=== PATIENT | female | born 1985 | race Caucasian/White ===

== ENCOUNTER 2018-10-01 15:14 | Emergency (ER) | payer OTHER ==
[2018-10-01] MEDS ORDERED: NS 0.9% 1000 ML** 1,000 ML IV ONE (18:59)
[2018-10-01 19:46] LABS: ABS Basophils 0 10^3/ul (0-0.2); ABS Eosinophils 0 10^3/ul (0-0.6); ABS Lymphocytes 1.8 10^3/ul (1.0-4.8); ABS Monocytes 0.5 10^3/ul (0-0.8); ABS Neutrophils 5.9 10^3/ul (1.5-7.7); ABS Nucleated RBC 0 10^3/ul; Eosinophil % 0.3 %; Hematocrit 36 % (33-41); Hemoglobin 11.8 g/dL (12.0-16.0); Lymphocyte % 22.2 %; Mean Corpuscular HGB Conc 33 g/dL (31-36); Mean Corpuscular Hemoglobin 29 pg (27-31); Mean Corpuscular Volume 88 fL (80-97); Mean Platelet Volume 8.3 fL (7.4-10.4); Nucleated Red Blood Cells % 0.1; Platelet Count 205 10^3/uL (150-450); Red Blood Count 4.07 10^6 /uL (3.70-4.87); Red Cell Distribution Width 13 % (10.5-15); White Blood Count 8.2 10^3/uL (3.5-10.8)
[2018-10-01 20:02] LABS: Anion Gap 5 mmol/L (2-11); BUN/Creatinine Ratio 12.3 (8-20); Blood Urea Nitrogen 10 mg/dL (6-24); CO2 Carbon Dioxide 27 mmol/L (22-32); Calcium 9.2 mg/dL (8.6-10.3); Chloride 104 mmol/L (101-111); EGFR African American 100.5 (>60); Glucose 90 mg/dL (70-100); Potassium 4.3 mmol/L (3.5-5.0); Sodium 136 mmol/L (135-145)
[2018-10-01 20:09] LABS: HCG Pregnancy < 0.60 mIU/mL
--- NOTE | 2018-10-01 21:13 | UC ---
Complaint Female HPI - HPI Summary HPI Summary: 32-year-old female presents with sudden onset of left flank pain this afternoon while at work. Describes as an "sharp" pain that waxes and wanes in intensity. Pain began to radiate into the left lower quadrant throughout the day. Associated with nausea when the pain was at its most intense. No alleviating or aggravating factors. States pain has greatly improved over the past hour. Denies fever, chills, dysuria, frequency, urgency, or hematuria. - History Of Current Complaint Chief Complaint: EDFlankPain Stated Complaint: BACK PAIN PER PT Time Seen by Provider: 10/01/18 18:49 Hx Obtained From: Patient Pain Intensity: 4 - Allergies/Home Medications Allergies/Adverse Reactions: Allergies Allergy/AdvReac Type Severity Reaction Status Date / Time lactose Allergy GI Upset Verified 10/01/18 15:31 wheat Allergy GI Upset Verified 10/01/18 15:31 PMH/Surg Hx/FS Hx/Imm Hx Previously Healthy: Yes - Denies significant PMH - Surgical History Surgical History: None - Family History Known Family History: Positive: Non-Contributory - Social History Occupation: Employed Full-time Lives: With Family Review of Systems All Other Systems Reviewed And Are Negative: Yes Constitutional: Negative: Fever, Chills Skin: Negative: Rash Respiratory: Positive: Negative Cardiovascular: Positive: Negative Gastrointestinal: Positive: Abdominal Pain, Nausea. Negative: Vomiting, Diarrhea Genitourinary: Negative: Dysuria, Hematuria, Frequency, Urgency, Vaginal/Penile Discharge, Abnormal Bleeding Musculoskeletal: Positive: Negative Is Patient Immunocompromised?: Yes Physical Exam - Summary Physical Exam Summary: GENERAL APPEARANCE: Well developed, well nourished, alert and cooperative, and appears to be in no acute distress. CARDIAC: Normal S1 and S2. No S3, S4 or murmurs. Rhythm is regular. There is no peripheral edema, cyanosis or pallor. Extremities are warm and well perfused. Capillary refill is less than 2 seconds. Peripheral pulses intact. LUNGS: Clear to auscultation without rales, rhonchi, wheezing or diminished breath sounds. ABDOMEN: Positive bowel sounds. Soft, nondistended. Mild LLQ tenderness. No guarding or rebound. No masses or hepatosplenomegally. Mild let CVA tenderness. MUSKULOSKELETAL: ROM intact to all extremities. No joint erythema or tenderness. Normal muscular development. Normal gait. BACK: Examination of the spine reveals normal gait and posture, no spinal deformity or tenderness, decreased range of motion or muscular spasm. SKIN: Skin normal color, texture and turgor with no lesions or eruptions. Triage Information Reviewed: Yes Vital Signs: Initial Vital Signs Temp 97.7 F 10/01/18 15:26 Pulse 84 10/01/18 15:26 Resp 20 10/01/18 15:26 BP 123/74 10/01/18 15:26 Pulse Ox 100 10/01/18 15:26 Vital Signs Reviewed: Yes Diagnostics - Radiology No standard instances Radiology Interpretation Completed By: Radiologist Summary of Radiographic Findings: EXAM: CT Abdomen and Pelvis Without Contrast. EXAM DATE/TIME: 10/01/2018 8:39 PM. CLINICAL HISTORY: 32 years old , female; Pain; Abdominal pain; Flank; Left; Additional info: R/O. kidney stone. TECHNIQUE: Imaging protocol: Axial computed tomography images of the abdomen and pelvis. without contrast. Coronal and sagittal reformatted images were created and reviewed. Radiation optimization: All CT scans at this facility use at least one of. these dose optimization techniques: automated exposure control; mA and/or kV. adjustment per patient size (includes targeted exams where dose is matched to. clinical indication); or iterative reconstruction. COMPARISON: No relevant prior studies available. FINDINGS: Lower thorax: No acute findings. ABDOMEN: Liver: Normal. No mass. Gallbladder and bile ducts: Normal. No calcified stones. No ductal dilation. Pancreas: Normal. No ductal dilation. Spleen: Normal. No splenomegaly. Adrenals: Normal. No mass. Kidneys and ureters: No renal calculi or pelvocaliectasis. Stomach and bowel: Incompletely distended grossly normal stomach. Normal. caliber small bowel. No colonic masses or segmental wall thickening. Appendix: Normal caliber appendix without wall thickening or adjacent. inflammation. PELVIS: Bladder: The bladder is decompressed but otherwise normal. Reproductive: Uterus and ovaries are normal. ABDOMEN and PELVIS: Intraperitoneal space: Normal. No free air. No significant fluid collection. Bones/joints: No fractures. No suspicious bone lesions. Soft tissues: Normal. No hernia. Vasculature: Normal caliber aorta with no evidence of dissection or rupture. Lymph nodes: Normal. No enlarged lymph nodes. IMPRESSION: No CT findings to correlate with patient's symptomatology. Specifically no. obstructing renal or ureteral calculi. Complaint Female Dx - Course Course Of Treatment: 32-year-old female presents with sudden onset of left flank pain this afternoon while at work. Describes as an "sharp" pain that waxes and wanes in intensity. Pain began to radiate into the left lower quadrant throughout the day. Associated with nausea when the pain was at its most intense. No alleviating or aggravating factors. States pain has greatly improved over the past hour. Denies fever, chills, dysuria, frequency, urgency, or hematuria. Afebrile. Vital signs stable. Exam was remarkable for mild left CVA tenderness and mild left lower quadrant tenderness without rebound or guarding. Patient received 1 L normal saline, CBC and BMP were within normal limits. Noncontrasted CT of the abdomen and pelvis was performed. No evidence of a renal stone or other acute pathology was noted. A UA was collected by nursing after CT which showed trace ketones, 1+ blood, 1+ leukocyte esterase, 4-20 WBC, 3-5 RBC, 1+ baceria, with sqaumous cells present. Urine culture is pending. Patient states that she continues to have some mild left flank and lower abdomen pain but much improved from previous. Based on her symptoms she may have passed a very small stone versus possible UTI. Will treat with Bactrim DS 1 tab BID x 7 days. She is to follow up with her PCP in 5-7 days if symptoms persist. Anticipatory guidance and warning symptoms were reviewed with the patient. Verbalizes understanding and agrees with POC. - Differential Dx/Diagnosis Differential Diagnosis/HQI/PQRI: Ectopic, Ovarian Cyst, Renal Colic, Ureteral Stone, Urinary Tract Infection Provider Diagnosis: Flank pain, acute, UTI (urinary tract infection) Discharge - Sign-Out/Discharge Documenting (check all that apply): Patient Departure Patient Received Moderate/Deep Sedation with Procedure: No - Discharge Plan Condition: Stable Disposition: HOME Prescriptions: Sulfamethox/Trimethoprim DS* [Bactrim DS 800/160 TAB*] 1 tab PO BID #14 tab Patient Education Materials: Kidney Stones (ED), Urinary Tract Infection in Women (DC) Referrals: No Primary Care Phys,NOPCP [Primary Care Provider] - Additional Instructions: The CT scan performed in the emergency room tonight was normal, labs were normal , and the urine test did show the possibility of a urinary tract infection. Although the CT scan was normal your symptoms were consistent with a kidney stone and this could still be the case if it was a small stone. Based on a urine test results though we will treat you for a urinary tract infection. Start Bactrim DS 1 tab twice a day for 7 days. We gave you the first dose in the emergency room. Drink plenty of fluids. To help prevent urinary tract infections: 1) Be sure to wipe from front to back. 2) Urinate immediately after any sexual intercourse. 3) Avoid taking bubble baths. Follow up with your primary care provider in 5-7 days if symptoms persist. Seek immediate medical attention in the emergency room if you develop fever greater than 100.5 F, have severe abdominal pain, persistent vomiting, or any worsening of symptoms. - Billing Disposition and Condition Condition: STABLE Disposition: Home
[2018-10-01 21:31] LABS: Urine Appearance Cloudy; Urine Bacteria 1+ (Absent); Urine Bilirubin Negative (Negative); Urine Blood 1+ (Negative); Urine Color Yellow; Urine Glucose Negative (Negative); Urine Ketones Trace (Negative); Urine Nitrite Negative (Negative); Urine Protein Negative (Negative); Urine Red Blood Cell 1+(3-5/hpf) (Absent); Urine Specific Gravity 1.013 (1.010-1.030); Urine Squamous Epithelial Cell Present (Absent); Urine Urobilinogen Negative (Negative); Urine White Blood Cell 2+(11-20/hpf) (Absent)
[2018-10-01] MEDS ORDERED: Sulfamethox/Trimethoprim DS 800/160* TAB PO ONE (21:33)
[2018-10-01 22:03] VITALS: BP 119/65
--- NOTE | 2018-10-04 09:06 | PN ---
Progress Note - Progress Note Date of Service: 10/01/18 Note: Urine culture final grew ESBL Escherichia coli 100,000 Results were called into myself, Kristin Mckeon, at 9:05 AM on 10/04/18 Patient was placed on Bactrim prior to discharge on 10/01/18 This is sensitive to organism Nothing further needed at this time
== END 2018-10-01 22:00 | disposition home or self-care (01) ==
LOC: ED 15:14
DX: N39.0 Urinary tract infection, site not specified (principal); B96.20 Unspecified Escherichia coli [E. coli] as the cause of diseases classified elsewhere; M54.5 Low back pain; R10.32 Left lower quadrant pain; R11.0 Nausea
CPT/HCPCS: 36415; 74176; 80048; 81003; 81015; 84702; 85025; 87077; 87086; 87186; 96360; 99282; A9270-GY

== ENCOUNTER 2018-11-05 16:29 | Emergency (ER) | payer OTHER ==
--- OUTSIDE RECORDS SUMMARY | 2018-11-05 17:03 | XMS REPORT | Continuity of Care Document ---
:1985 Author Organization [facility] Address [address], [place] [id number] Phone Care Team Providers Name Role Phone Sarah Iyer NP Unavailable Unavailable Allergies, Adverse Reactions, Alerts Substance Reaction Status No Known Allergies Active Medications Medication Instructions Dosage Effective Dates Status Comments (start - stop) EContra EZ 1.5 mg 1 tab po within 72 - Active tablet hours unprotected IC Problems Condition Effective Dates (start - Clinical Status Comments stop) Human immunodeficiency virus [HIV] - counseling Encounter for screening for human - immunodeficiency virus Encounter for prescription of emergency contraception Encounter for oth general cnsl and advice on contraception Encounter for oth screening for malignant neoplasm of breast Encounter for screening for malignant neoplasm of cervix Encntr for artificial stone applicator exam (general) (routine) w/o abn findings Encntr screen for infections w sexl mode of transmiss Encounter for oth general cnsl and - advice on contraception Human immunodeficiency virus [HIV] - counseling Encntr screen for infections w sexl mode of transmiss Candidiasis of vulva and vagina Encounter for screening for human - immunodeficiency virus Human immunodeficiency virus [HIV] - counseling Encounter for oth general cnsl and - advice on contraception Encntr screen for infections w sexl mode of transmiss Encounter for screening for human - immunodeficiency virus Procedures Procedure Date PREVENTIVE COUNSELING, 8-14 Minutes HIV-1/HIV-2, SINGLE ASSAY URINALYSIS, DIP NONAUTO W/O SCOPE PREV VISIT, EST, AGE 18-39 BLOOD PRESSURE Height/Weight Abdominal Palp. BREAST EXAM Emergency Contraception OTHER Medical Services Contraceptive Perinatal Director.Svc. Other Perinatal Director.Svc. STI E-Contra EZ Emergency Contraceptive CHYLMD DNA, AMP PROBE N.GONORRHOEAE, DNA, AMP PROB SUREPATH HPV, DNA, AMP PROBE HIGH RISK Results Test Name Date and Time Measure Units Reference Range Abnormal Flag Status Comments Panel Description: Urine Dipstick Final Urine Dipstick 14:33:32 Color: yellowGlucose: Final negativeKetones: negativeBilirubin: negativeProtein: negativeNitrite: negativeLeukocytes: negativeBlood: negativepH: 7.5 NOTE: This patient has pending results not included in this document. Advance Directives Directive Yes / No Effective Date File Name No information Encounters Encounter Practice Location Reason(s) Diagnoses Date Provider Providers Description For Visit Copied on Encounter PREVENTIVE [facility] Referring COUNSELING, [facility] [place] Person immunodeficiency 3-201 Sarah. Provider: 8-14 Minutes Southern Visit virus [HIV] 9 [address] (chief [facility], [address] complaint) for screening for St, [address] [place] human [place], [address], [place], [place], [place], [place], [place], [place] [id number]. [place], [address]. [id number], prescription of tel:[phone] tel:[phone] [place] emergency [phone] tel:[phone] for oth general cnsl and advice on contraceptionEncoun ter for oth screening for malignant neoplasm of breastEncounter for screening for malignant neoplasm of cervixEncntr for artificial stone applicator exam (general) (routine) w/o abn findingsEncntr screen for infections w sexl mode of transmissEncounter for oth general cnsl and advice on contraception [facility] [place] immunodeficiency 6 Sarah. Southern virus [HIV] 8 [address] counseling[address] [place], [address] [place] infections w sexl [place], St, [place], [place], [place] [id number]. [id number], s of vulva and tel:[phone] [place] vaginaEncounter for [id number] tel:[phone] screening for human [id number] immunodeficiency virus [facility] [place] immunodeficiency 1-201 Chiara. Southern virus [HIV] 7 [address] counselingEnc[address] [place], [address] [place] cnsl and advice on [place], [place], [place], [place]ntr [place] [address], [id number], infections w sexl [place]. [place] mode of tel:[phone] transmissEncounter [id number] for screening for human immunodeficiency virus Family History Family Member Diagnosis Age At Onset Father Coronary heart disease before age 55 45 1st degree relative No hx of venous thromboembolism 1st degree relative No hx of cancer of breast, colon, endometrium or ovary Immunizations Vaccine Date Status Comments No information Payers Payer name Insurance type Covered green party ID Authorization(s) Jovany DONALDSON [facility] CI [id number] Social History Type Description Quantity Date Captured Comments Alcohol Use Details Unknown Caffeine Use Details Unknown Tobacco Use Status Current non-smoker Smoking Status Never smoker Non-Smoking Tobacco : No Details Available : No Details Available 2018 Use Details Sex Female Vital Signs Date / Height Weight BMI Pulse Blood Temperature Respiratory Body Head BMI Pulse Inhaled Time: Rate Pressure Rate Surface Circumference percentile Ox Ox Area 62.00 157.00 28.7 in lbs 2 mm[Hg] 1:36 kg/m PM eter (2) Chief Complaint And Reason For Visit Most recent encounter only, dated '10/13/2018 13:00'. Well Person Visit ( chief complaint) Reason For Referral Reason For Referral No information Plan Of Treatment Date Type Action Status No information History Of Present Illness Encounter Date Complaint History Of Present Illness No information Functional Status Date Functional Assessment No information Medications Administered Medication Instructions Dosage Effective Dates (start - stop) Status Comments No information Instructions Date Instruction Additional Information No information Assessments Type Assessment Date assessment Human immunodeficiency virus [HIV] counseling assessment Encounter for screening for human immunodeficiency virus 2018 assessment Encounter for prescription of emergency contraception assessment Encounter for oth general cnsl and advice on contraception 2018 assessment Encounter for oth screening for malignant neoplasm of breast assessment Encounter for screening for malignant neoplasm of cervix 2018 assessment Encntr for artificial stone applicator exam (general) (routine) w/o abn findings 2018 assessment Encntr screen for infections w sexl mode of transmiss assessment Encounter for oth general cnsl and advice on contraception 2018 Goals Health Concern Goal Type Priority Status Date No information Medical Equipment Description Device [place] Device Identifier Effective Dates (start - stop ) Status No information Mental Status Date Cognitive Assessment Normal Orientation Health Concerns Observation Date No information Concern Status Date No information
--- OUTSIDE RECORDS SUMMARY | 2018-11-05 17:03 | XMS REPORT | Continuity of Care Document ---
:1985 Author Organization [facility] Address [address], [place] [id number] Phone Care Team Providers Name Role Phone [...] for malignant neoplasm of cervix Encntr for manager culture exam (general) (routine) w/o abn findings Encntr [...] human - immunodeficiency virus Procedures Procedure Date No information Results Test Name Date and Time Measure Units Reference Range Abnormal Flag Status Comments No information Advance Directives Directive Yes / No Effective Date File Name No information Encounters Encounter Practice Location Reason(s) Diagnoses Date Provider Providers Description For Visit Copied on Encounter [facility] [place] . [place] 9 [address] [place], [address] [place], St, [place], [address]. [id number], tel:[phone] [place] [phone] tel:[phone] [facility] Apr[facility]0 [facility] [place] immunodeficiency 3. Provider: [place] virus [HIV] 9 [address] counselingEncounter [place], [address], [address] [place] human [place], [address], [place], [place], [place] [address]. [place], [address]. [id number], prescription of tel:[phone] tel:[phone] [place] emergency [phone] tel:[phone] for oth general cnsl and advice on contraceptionEncoun ter for oth screening for malignant neoplasm of breastEncounter for screening for malignant neoplasm of cervixEncntr for manager culture exam (general) (routine) w/o abn findingsEncntr screen for infections w sexl mode of transmissEncounter for oth general cnsl and advice on contraception [facility] [place] immunodeficiency . [place] virus [HIV] 8 [address] counselingEncntr [place], [address], [address] [place] infections w sexl [place], [place], [place], [place] [address]. [id number], s of vulva and tel:[phone] [place] vaginaEncounter for [id number] tel:[phone] screening for human [id number] immunodeficiency virus [facility] [place] immunodeficiency Chiara. Southern virus [HIV] 7 [address] counselingEncounter [place], [address], [address] [place] cnsl and advice on [place], [place], [place], [place]Encntr [place] [address], [id number], infections w sexl [place]. [place] mode of tel:[phone] transmissEncounter [id number] for screening for human immunodeficiency virus Family History Family Member Diagnosis Age At Onset Father Coronary heart disease before age 55 45 1st degree relative No hx of venous thromboembolism 1st degree relative No hx of cancer of breast, colon, endometrium or ovary Immunizations Vaccine Date Status Comments No information Payers Payer name Insurance type Covered libertarian ID [facility]) [facility] [id number] Social History Type Description Quantity Date Captured Comments Alcohol Use Details Unknown Caffeine Use Details Unknown Tobacco Use Status Unknown Smoking Status Never smoker Sex Female Vital Signs Date / Height Weight BMI Pulse Blood Temperature Respiratory Body Head BMI Pulse Inhaled Time: Rate Pressure Rate Surface Circumference percentile Ox Ox Area No information Chief Complaint And Reason For Visit No information Reason For Referral Reason For Referral No information Plan Of Treatment Date Type Action Status No information History Of Present Illness Encounter Date Complaint History Of Present Illness No information Functional Status Date Functional Assessment No information Medications Administered Medication Instructions Dosage Effective Dates (start - stop) Status Comments No information Instructions Date Instruction Additional Information No information Assessments Type Assessment Date No information Goals Health Concern Goal Type Priority Status Date No information Medical Equipment Description Device [place] Device Identifier Effective Dates (start - stop ) Status No information Mental Status Date Cognitive Assessment No information Health Concerns Observation Date No information Concern Status Date No information
[2018-11-05 19:07] LABS: ABS Basophils 0 10^3/ul (0-0.2); ABS Eosinophils 0 10^3/ul (0-0.6); ABS Lymphocytes 2.3 10^3/ul (1.0-4.8); ABS Monocytes 0.3 10^3/ul (0-0.8); ABS Nucleated RBC 0 10^3/ul; Eosinophil % 0.3 %; Hematocrit 38 % (33-41); Hemoglobin 12.5 g/dL (12.0-16.0); Lymphocyte % 33.9 %; Mean Corpuscular HGB Conc 33 g/dL (31-36); Mean Corpuscular Hemoglobin 29 pg (27-31); Mean Corpuscular Volume 88 fL (80-97); Mean Platelet Volume 8.6 fL (7.4-10.4); Nucleated Red Blood Cells % 0.1; Platelet Count 193 10^3/uL (150-450); Red Blood Count 4.33 10^6 /uL (3.70-4.87); Red Cell Distribution Width 13 % (10.5-15); White Blood Count 6.7 10^3/uL (3.5-10.8)
--- NOTE | 2018-11-05 19:12 | ED ---
GI/ HPI - HPI Summary HPI Summary: 32-year-old female presents with back pain and abdominal pain for the past couple hours. She was in the waiting room and the pain dissipated. She's had this in the past and was a UTI. She denies urgency, frequency or dysuria. Denies any abnormal vaginal discharge. No diarrhea or constipation. States her normal bowel movement today. denies any medical conditions. she did not try anything for pain. no chest pain or SOB. no pain or swelling in calf muscles. - History of Current Complaint Chief Complaint: EDFlankPain Time Seen by Provider: 11/05/18 18:22 Stated Complaint: LOWER BACK PAIN PER PT Pain Intensity: 2 - Allergy/Home Medications Allergies/Adverse Reactions: Allergies Allergy/AdvReac Type Severity Reaction Status Date / Time lactose Allergy GI Upset Verified 11/05/18 18:30 wheat Allergy GI Upset Verified 11/05/18 18:30 PMH/Surg Hx/FS Hx/Imm Hx Endocrine/Hematology History: Denies: Hx Anticoagulant Therapy Respiratory History: Denies: Hx Asthma Infectious Disease History: No Infectious Disease History: Denies: Traveled Outside the [place] in Last 30 Days - Family History Known Family History: Positive: Non-Contributory - Social History Alcohol Use: Occasionally Substance Use Type: Reports: None Smoking Status (MU): Former Smoker Review of Systems Negative: Fever Negative: Chest Pain Negative: Shortness Of Breath Positive: Abdominal Pain Positive: flank pain All Other Systems Reviewed And Are Negative: Yes Physical Exam Triage Information Reviewed: Yes Vital Signs On Initial Exam: Initial Vitals Temp Pulse Resp BP Pulse Ox 98.7 F 86 16 115/77 100 11/05/18 16:49 11/05/18 16:49 11/05/18 16:49 11/05/18 16:49 11/05/18 16:49 Vital Signs Reviewed: Yes Appearance: Positive: Well-Appearing Skin: Positive: Warm, Dry Head/Face: Positive: Normal Head/Face Inspection Eyes: Positive: Normal, EOMI, MORELIA, Conjunctiva Clear ENT: Positive: Normal ENT inspection, Pharynx normal, TMs normal Respiratory/Lung Sounds: Positive: Clear to Auscultation, Breath Sounds Present Cardiovascular: Positive: Normal, RRR Abdomen Description: Positive: Nontender, Soft. Negative: CVA Tenderness (R), CVA Tenderness (L) Musculoskeletal: Positive: Normal Neurological: Positive: Normal Psychiatric: Positive: Normal Diagnostics - Vital Signs Vital Signs Temp Pulse Resp BP Pulse Ox 11/05/18 19:00 61 100 11/05/18 18:28 78 140/84 84 11/05/18 16:49 98.7 F 86 16 115/77 100 - Laboratory Lab Results: Lab Results 11/05/18 Range/Units 18:59 WBC 6.7 (3.5-10.8) 10^3/uL RBC 4.33 (3.70-4.87) 10^6 /uL Hgb 12.5 (12.0-16.0) g/dL Hct 38 (33-41) % MCV 88 (80-97) fL MCH 29 (27-31) pg MCHC 33 (31-36) g/dL RDW 13 (10.5-15) % Plt Count 193 (150-450) 10^3/uL MPV 8.6 (7.4-10.4) fL Neut % (Auto) 60.3 % Lymph % (Auto) 33.9 % [place] % (Auto) 4.9 % Eos % (Auto) 0.3 % Baso % (Auto) 0.6 % Absolute Neuts (auto) 4.0 (1.5-7.7) 10^3/ul Absolute Lymphs (auto) 2.3 (1.0-4.8) 10^3/ul Absolute Monos (auto) 0.3 (0-0.8) 10^3/ul Absolute Eos (auto) 0 (0-0.6) 10^3/ul Absolute Basos (auto) 0 (0-0.2) 10^3/ul Absolute Nucleated RBC 0 10^3/ul Nucleated RBC % 0.1 Result Diagrams: 11/05/18 18:59 11/05/18 18:59 Lab Statement: Any lab studies that have been ordered have been reviewed, and results considered in the medical decision making process. - Ultrasound No standard instances Ultrasound Interpretation Completed By: Radiologist Summary of Ultrasound Findings: IMPRESSION: No hydronephrosis or visible calculi. GIGU Course/Dx - Course Course Of Treatment: 32-year-old female presents with back pain and abdominal pain for the past couple hours. She was in the waiting room and the pain dissipated. She's had this in the past and was a UTI. She denies urgency, frequency or dysuria. Denies any abnormal vaginal discharge. No diarrhea or constipation. States her normal bowel movement today. denies any medical conditions. she did not try anything for pain. On exam nontender abdomen negative CVA tenderness. Urine normal. wbc normal. CRP normal. Renal ultrasound normal. discussed could be muscular. told to ibuprofen and est care with primary. patient understand and agrees with plan. - Diagnoses Differential Diagnoses - Female: Urinary Tract Infection, Ureteral Calculi, Other - muscle spasms Provider Diagnoses: Flank pain Discharge - Sign-Out/Discharge Documenting (check all that apply): Patient Departure Patient Received Moderate/Deep Sedation with Procedure: No - Discharge Plan Condition: Good Disposition: HOME Patient Education Materials: Flank Pain (ED) Referrals: [facility] [place] [facility] REFERRAL [Outside] Additional Instructions: establish care with primary to follow up Take tyenlol or ibuprofen as needed for pain Return to ED if develop any new or worsening symptoms - Billing Disposition and Condition Condition: GOOD Disposition: Home
[2018-11-05 19:24] LABS: ALT 11 U/L (7-52); AST 14 U/L (13-39); Albumin 4.3 g/dL (3.2-5.2); Albumin/Globulin Ratio 1.7 (1-3); Alkaline Phosphatase 39 U/L (34-104); Anion Gap 5 mmol/L (2-11); BUN/Creatinine Ratio 8.7 (8-20); Blood Urea Nitrogen 9 mg/dL (6-24); C Reactive Protein < 1.00 mg/L (<8.01); CO2 Carbon Dioxide 26 mmol/L (22-32); Calcium 9.1 mg/dL (8.6-10.3); Chloride 107 mmol/L (101-111); EGFR African American 76.1 (>60); EGFR Non-African American 62.9 (>60); Globulin 2.6 g/dL (2-4); Glucose 116 mg/dL (70-100); Potassium 4.7 mmol/L (3.5-5.0); Sodium 138 mmol/L (135-145); Total Protein 6.9 g/dL (6.4-8.9)
[2018-11-05 19:26] LABS: Urine Appearance Clear; Urine Bilirubin Negative (Negative); Urine Blood Negative (Negative); Urine Color Straw; Urine Glucose Negative (Negative); Urine Ketones Negative (Negative); Urine Nitrite Negative (Negative); Urine Protein Negative (Negative); Urine Specific Gravity 1.006 (1.010-1.030); Urine Urobilinogen Negative (Negative)
[2018-11-05 19:30] LABS: HCG Pregnancy < 0.60 mIU/mL
[2018-11-05 20:16] VITALS: BP 105/69
== END 2018-11-05 20:15 | disposition home or self-care (01) ==
LOC: ED 16:29
DX: R10.9 Unspecified abdominal pain (principal); Z87.891 Personal history of nicotine dependence
CPT/HCPCS: 36415; 76775; 80053; 81003; 83690; 84702; 85025; 86140; 99282